=== PATIENT | male | born 2000 | race Caucasian/White ===

== ENCOUNTER 2023-09-18 23:40 | Emergency (ER) | payer MEDICAID ==
[~2023-09-18] VITALS: Ht 172.7 cm; Wt 85.0 kg
[2023-09-19 00:01] VITALS: BP 125/85; PULSE 64; RESP 16; TEMP 97.8; O2SAT 97
== END 2023-09-19 02:56 | disposition left against medical advice (07) ==
LOC: ER 23:41
DX: M25.561 Pain in right knee (principal); Z53.21 Procedure and treatment not carried out due to patient leaving prior to being seen by health care provider

== ENCOUNTER 2024-05-25 09:12 | Emergency (ER) | payer MEDICAID ==
[~2024-05-25] VITALS: Ht 172.7 cm; Wt 93.5 kg
[2024-05-25 09:30] VITALS: BP 135/85; PULSE 81; RESP 19; TEMP 97.9; O2SAT 99
[2024-05-25] MEDS ORDERED: ACET15SO14 LEFT EAR (11:30)
== END 2024-05-25 11:45 | disposition home or self-care (01) ==
LOC: ER 09:12
DX: T16.2XXA Foreign body in left ear, initial encounter (principal); Z79.899 Other long term (current) drug therapy; W44.8XXA Other foreign body entering into or through a natural orifice, initial encounter; Y93.89 Activity, other specified; Y92.89 Other specified places as the place of occurrence of the external cause; Y99.8 Other external cause status
CPT/HCPCS: 99284